=== PATIENT | male | born 1975 | race Caucasian/White ===

== ENCOUNTER 2022-04-09 05:51 | Day surgery (SDC) | payer BC, SELFPAY ==
[2022-04-09] VITALS (23 sets, daily range): BP systolic 133–169; BP diastolic 83–119; PULSE 61–91; RESP 10–18; TEMP 35.7–36.9; O2SAT 94–99; BMI 27.9
--- NOTE | 2022-04-09 06:28 | CRLHL7_ITS ---
For Patients: As a result of the Century Cures Act, medical imaging exams and procedure reports are released immediately into your electronic medical record. You may view this report before your referring provider. If you have questions, please contact your health care provider. INDICATION: Right upper quadrant abdomen pain. TECHNIQUE: Ultrasound abdomen limited. Sonographic images of the right upper quadrant were obtained using mendiola-scale and color Doppler images. COMPARISON: None. FINDINGS: Liver: Normal in size and echotexture. No masses. No intrahepatic biliary dilatation. Gallbladder: Multiple gallbladder stones are present. There is gallbladder wall thickening measuring 10 mm. Common bile duct: 5 mm. Pancreas: Not well visualized secondary to bowel gas. Right kidney: Normal in size. Normal echotexture and cortex. No suspicious masses, stones, or hydronephrosis. Vasculature: Proximal abdominal aorta and IVC are normal. IMPRESSION: Cholelithiasis with gallbladder wall thickening consistent with cholecystitis. Dictated by Dung Carroll MD @ 04/09/2022 7:21:30 AM (Electronically Signed)
--- NOTE | 2022-04-09 06:31 | ED.GENADULT ---
HPI - General Adult General Date Seen: 04/09/22 Chief complaint: Abdominal Pain Stated complaint: abdominal and flank pain Time Seen by Provider: 04/09/22 06:01 Source: patient History of Present Illness HPI narrative: Patient is a 46-year-old male who presents for evaluation of right upper quadrant and which radiates to the right low back. He has had this pain on and off for the past week or so. It has been milder and has not been present all the time. He says he had talked to his doctor who had recommended a bland diet, so he had been eating fairly bland food, but yesterday had eaten at [employer], and thinks that set off his symptoms again. Since 5 or 6:00 p.m. last night his pain is been more severe, and he presents at 6:00 a.m. for evaluation saying he just can not take it anymore. He has nausea, has had some dry heaves but no vomiting. He has had a couple of normal bowel movements in the past day, no bloody stools and no diarrhea. No fevers that he is aware of but he says he has felt hot and cold. No urinary symptoms. Prior to this week he has not had pain like this. He has not had any abdominal surgeries. He does not smoke or drink. Related Data Previous Rx's Medication Instructions Recorded oxycodone 5 mg tablet 5 mg PO Q6H PRN pain #20 tabs 04/09/22 sennosides 8.6 mg capsule (senna) 8.6 mg PO DAILY PRN constipation 04/09/22 #90 caps Allergies Allergy/AdvReac Type Severity Reaction Status Date / Time ibuprofen [From Advil] Allergy Intermediate Verified 04/09/22 06:57 Review of Systems Status of ROS: Reports: 10 or more systems reviewed and unremarkable except as noted in History and below [facility] Medical History Chronic back pain Gastroenteritis Obesity Surgical History History of tonsillectomy and adenoidectomy Social History Smoking Status: Never smoker Do you use any of these nicotine containing products: None Second hand tobacco smoke exposure: No How often do you have a drink containing alcohol: never How often do you have six or more drinks on one occasion: Never AUDIT-C Alcohol total score: 0 Non-prescribed substance use: denies use Exam Narrative: Exam Narrative: Vital signs as noted above. In general, an alert, well-appearing patient. Head: Normocephalic, atraumatic. Eyes: Pupils are equal reactive. Extraocular movements are full. Conjunctivae are normal. ENT: Mucous membranes are moist. Throat is normal. Neck: Supple without lymphadenopathy. Heart: Regular rate and rhythm. No murmur or rub. Lungs: Clear bilaterally. No increased work of breathing, crackles or wheezes. Abdomen: Soft with isolated right upper quadrant tenderness, positive Portillo's. No rebound guarding or rigidity otherwise. Exam somewhat limited by body habitus. Back: No CVA tenderness. Extremities: Well perfused. No edema. No calf tenderness. Pulses intact. Neurologic: Patient is alert and oriented to person and place. Speech is fluent. Face is symmetric. Moves all extremities equally. Affect: Normal. Skin: Warm and dry. Well perfused. Const: Vital Signs, click to edit/add: Vital Signs - 24 hr 04/09/22 13:35 04/09/22 13:40 04/09/22 13:45 Temperature 97 F L Pulse Rate 75 77 75 Pulse Rate [Right Pulse Oximeter] Respiratory Rate 10 L 12 12 Blood Pressure 144/91 H 148/91 H 144/91 H Blood Pressure [Le ft Arm] Pulse Oximetry 95 95 94 Oxygen Delivery Fl thod Room Air Room Air Room Air 04/09/22 13:50 04/09/22 13:55 04/09/22 14:00 Temperature Pulse Rate 70 67 65 Pulse Rate [Right Pulse Oximeter] Respiratory Rate 12 12 12 Blood Pressure 137/91 H 146/94 H 141/87 H Blood Pressure [Le ft Arm] Pulse Oximetry 96 95 96 Oxygen Delivery Fl thod Room Air Room Air Room Air 04/09/22 14:02 04/09/22 14:16 04/09/22 14:16 Temperature 97.1 F L 96.9 F L 96.9 F L Pulse Rate 65 Pulse Rate [Right Pulse Oximeter] Respiratory Rate 12 16 16 Blood Pressure 134/92 H Blood Pressure [Le ft Arm] 150/97 H 150/97 H Pulse Oximetry 95 95 Oxygen Delivery Fl thod Room Air Room Air Room Air 04/09/22 14:30 04/09/22 14:16 04/09/22 14:45 Temperature 96.9 F L 96.9 F L 96.9 F L Pulse Rate Pulse Rate [Right Pulse Oximeter] 75 61 Respiratory Rate 16 16 16 Blood Pressure Blood Pressure [Le ft Arm] 155/93 H 150/97 H 158/102 H Pulse Oximetry 99 99 97 Oxygen Delivery Me thod Room Air Room Air Room Air 04/09/22 15:00 04/09/22 15:15 04/09/22 15:45 Temperature 96.7 F L 97.8 F 97.8 F Pulse Rate Pulse Rate [Right Pulse Oximeter] 68 74 63 Respiratory Rate 16 16 16 Blood Pressure Blood Pressure [Le ft Arm] 149/92 H 146/119 H 169/104 H Pulse Oximetry 97 99 98 Oxygen Delivery Me thod Room Air Room Air Room Air 04/09/22 16:15 04/09/22 16:30 04/09/22 18:10 Temperature 97.8 F 97.8 F 98.4 F Pulse Rate Pulse Rate [Right Pulse Oximeter] 69 67 74 Respiratory Rate 16 16 18 Blood Pressure Blood Pressure [Le ft Arm] 153/92 H 169/96 H 156/87 H Pulse Oximetry 99 97 Oxygen Delivery Me thod Room Air Room Air Room Air 04/09/22 17:30 04/09/22 18:43 04/09/22 19:30 Temperature 98.4 F 98.5 F 97.8 F Pulse Rate Pulse Rate [Right Pulse Oximeter] 74 81 91 Respiratory Rate 18 18 18 Blood Pressure Blood Pressure [Le ft Arm] 156/87 H 141/91 H 158/92 H Pulse Oximetry 97 99 97 Oxygen Delivery Me thod Room Air Room Air Room Air 04/09/22 23:00 04/09/22 23:00 04/10/22 03:00 Temperature 97.8 F 96.9 F L Pulse Rate Pulse Rate [Right Pulse Oximeter] 72 72 65 Respiratory Rate 18 18 16 Blood Pressure Blood Pressure [Le ft Arm] 133/83 154/89 H Pulse Oximetry 99 99 Oxygen Delivery Me thod Room Air Room Air 04/10/22 08:35 Temperature 96.9 F L Pulse Rate Pulse Rate [Right Pulse Oximeter] 64 Respiratory Rate 18 Blood Pressure Blood Pressure [Le ft Arm] 124/78 Pulse Oximetry 99 Oxygen Delivery Me thod Room Air Documenting provider has reviewed patient's vital signs: yes Course Course Hospital Course: Patient is a 38-year-old male who presented to the emergency department with clinical symptoms and findings consistent with acute cholecystitis. Underwent a laparoscopic cholecystectomy, the procedure went well and a 15 English Layo drain was left in the gallbladder fossa. On postop day 1 his pain was well controlled, he was tolerating a regular diet and ambulating independently. Repeat LFTs within normal limits. His drain had minimal output, but will remain in place until his clinic follow-up visit. Reevaluation(s) Reevaluation #1: Hospital course was inadvertently recorded in my ER note. ER course consisted of IV placement, Toradol and Zofran for pain. This did improve his symptoms although he still had mild abdominal pain and continued to have abdominal tenderness. I looked with the bedside ultrasound and noted multiple gallstones as well as what appeared to be a thickened gallbladder wall. Right kidney looked normal without evidence of hydronephrosis. Cholecystitis felt to be most likely but other considerations were pancreatitis, biliary colic, pyelonephritis, kidney stone, peptic ulcer disease, gastritis. Labs were relatively unremarkable. His white blood cell count was normal as was his lactate. LFTs showed an AST of 37 and ALT of 66, bilirubin normal. Alk-phos was likewise normal. CRP minimally elevated. Urinalysis negative for infection. He went on to have a formal ultrasound is read by Radiology showing multiple stones and a thickened wall at 10 mm, consistent with cholecystitis. I reviewed these findings with Dr. Scott, general surgery, who agreed to admit for cholecystectomy. He was hemodynamically stable, without other complaints for the remainder of his time in the emergency department. Remained NPO. Plan is for OR later this morning. Vital Signs Vital signs: Initial Vital Signs Temperature 98.5 F 04/09/22 06:01 Temperature Source Temporal Artery Scan 04/09/22 06:01 Pulse Rate 85 04/09/22 06:01 Respiratory Rate 18 04/09/22 06:01 Blood Pressure 138/90 H 04/09/22 06:01 Blood Pressure Mean 106 04/09/22 06:01 Blood Pressure Position Sitting 04/09/22 06:01 Pulse Oximetry 99 04/09/22 06:01 Oxygen Delivery Method 04/09/22 06:01 Vital Signs Temperature 98.5 F 04/09/22 06:01 Pulse Rate 85 04/09/22 06:01 Respiratory Rate 18 04/09/22 06:01 Blood Pressure 138/90 H 04/09/22 06:01 Pulse Oximetry 99 04/09/22 06:01 Oxygen Delivery Method 04/09/22 06:01 Temperature 96.9 F L 04/10/22 08:35 Pulse Rate 64 04/10/22 08:35 Respiratory Rate 18 04/10/22 08:35 Blood Pressure 124/78 04/10/22 08:35 Pulse Oximetry 99 04/10/22 08:35 Oxygen Delivery Method 04/10/22 08:35 Medical Decision Making Lab Data Labs: Lab Results 04/09/22 04/09/22 04/09/22 Range/Units 06:29 06:38 06:38 WBC 10.07 (4.50-11.00) K/uL RBC 5.10 (4.30-5.90) m/uL Hgb 14.6 (13.5-17.5) gm/dL Hct 42.6 (37.0-53.0) % MCV 84 (80-100) fL MCH 29 (26-34) pg MCHC 34 (32-36) gm/dL RDW Coeff of Pat 11.9 (11.5-15.5) % Plt Count 185 (140-440) K/uL Neut % (Auto) 79.0 H (42.0-72.0) % Lymph % (Auto) 12.2 L (20-44) % [place] % (Auto) 7.1 (0.0-11.0) % Eos % (Auto) 1.2 (0.0-7.0) % Baso % (Auto) 0.3 (0.0-3.0) % Neut # (Auto) 8.00 H (1.7-7.0) K/uL Lymph # (Auto) 1.20 (0.90-2.90) K/uL [place] # (Auto) 0.70 (0.00-0.90) K/UL Eos # (Auto) 0.12 (0.00-0.50) K/uL Baso # (Auto) 0.03 (0.00-0.30) K/uL Abs Immat Gran (auto) 0.02 (0.00-0.30) K/uL Sodium 135 (135-149) mmol/L Potassium 4.1 (3.6-5.1) mmol/L Chloride 102 (96-114) mmol/L Carbon Dioxide 25 (20-32) mmol/L BUN 16 (5-24) mg/dL Creatinine 0.7 (0.5-1.5) mg/dL Estimated Creat Clear 137.45 Estimated GFR 114 ml/min Glucose 196 H (60-115) mg/dL Calcium 9.3 (8.4-10.6) mg/dL Total Bilirubin 1.8 H (0.1-1.5) mg/dL Direct Bilirubin 0.1 (0.0-0.5) mg/dL AST 22 (12-35) U/L ALT 24 (4-50) U/L Alkaline Phosphatase 83 (40-150) U/L C-Reactive Protein 3.3 H (0.5-1.0) mg/dL Total Protein 7.1 (6.0-8.3) g/dL Albumin 4.4 (3.3-5.0) g/dL Lipase 50 (23-300) U/L Urine Color [place] A (Yellow) Urine Appearance Clear (Clear) Urine pH 7.0 (5.0-8.5) Ur Specific [place] 1.020 (1.000-1.030) Urine Protein Trace A (Negative) Urine Glucose (UA) Negative (Negative) Urine Ketones Trace A (Negative) Urine Blood Negative (Negative) Urine Nitrite Negative (Negative) Urine Bilirubin Negative (Negative) Urine Urobilinogen 0.2 (0.2-1.0) Ur Leukocyte Esterase Negative (Negative) Urine RBC 0-2 (0-2) Urine WBC 0-2 (0-5) Ur Squamous Epith Cells Few (None-Few) Amorphous Sediment Few A (None) Other Sediment FEW YEAST (None) Urine Bacteria Few A (None) Urine Mucus Many A (None) SARS-CoV-2 (PCR) (Negative) 04/09/22 04/10/22 Range/Units 07:55 06:08 WBC (4.50-11.00) K/uL RBC (4.30-5.90) m/uL Hgb (13.5-17.5) gm/dL Hct (37.0-53.0) % MCV (80-100) fL MCH (26-34) pg MCHC (32-36) gm/dL RDW Coeff of Pat (11.5-15.5) % Plt Count (140-440) K/uL Neut % (Auto) (42.0-72.0) % Lymph % (Auto) (20-44) % [place] % (Auto) (0.0-11.0) % Eos % (Auto) (0.0-7.0) % Baso % (Auto) (0.0-3.0) % Neut # (Auto) (1.7-7.0) K/uL Lymph # (Auto) (0.90-2.90) K/uL [place] # (Auto) (0.00-0.90) K/UL Eos # (Auto) (0.00-0.50) K/uL Baso # (Auto) (0.00-0.30) K/uL Abs Immat Gran (auto) (0.00-0.30) K/uL Sodium (135-149) mmol/L Potassium (3.6-5.1) mmol/L Chloride (96-114) mmol/L Carbon Dioxide (20-32) mmol/L BUN (5-24) mg/dL Creatinine (0.5-1.5) mg/dL Estimated Creat Clear Estimated GFR ml/min Glucose (60-115) mg/dL Calcium (8.4-10.6) mg/dL Total Bilirubin 1.1 (0.1-1.5) mg/dL Direct Bilirubin 0.2 (0.0-0.5) mg/dL AST 37 H (12-35) U/L ALT 66 H (4-50) U/L Alkaline Phosphatase 68 (40-150) U/L C-Reactive Protein (0.5-1.0) mg/dL Total Protein 6.5 (6.0-8.3) g/dL Albumin 3.9 (3.3-5.0) g/dL Lipase (23-300) U/L Urine Color (Yellow) Urine Appearance (Clear) Urine pH (5.0-8.5) Ur Specific [place] (1.000-1.030) Urine Protein (Negative) Urine Glucose (UA) (Negative) Urine Ketones (Negative) Urine Blood (Negative) Urine Nitrite (Negative) Urine Bilirubin (Negative) Urine Urobilinogen (0.2-1.0) Ur Leukocyte Esterase (Negative) Urine RBC (0-2) Urine WBC (0-5) Ur Squamous Epith Cells (None-Few) Amorphous Sediment (None) Other Sediment (None) Urine Bacteria (None) Urine Mucus (None) SARS-CoV-2 (PCR) Negative SARS-CoV-2 (Negative) Discharge Plan Discharge Activity Level: Activity as Tolerated Activity Detail: Activity as tolerated. Avoid strenuous activity. No lifting greater than 20 lb for 2 weeks. Discharge Diet: Low Fat/Low Cholesterol
[2022-04-09] MEDS: ONDANSETRON 2 MG/ML inj 4 MG IVP (06:35)
[2022-04-09] MEDS: KETOROLAC 15 MG/ML inj IVP ×2 (06:37→15:29)
[2022-04-09 06:54] LABS: Basophils Absolute Auto 0.03 K/uL (0.00-0.30); Basophils Percent Auto 0.3 % (0.0-3.0); Eosinophils Absolute Auto 0.12 K/uL (0.00-0.50); Eosinophils Percent Auto 1.2 % (0.0-7.0); Hematocrit 42.6 % (37.0-53.0); Hemoglobin* 14.6 gm/dL (13.5-17.5); Immature Granulocytes Abs Auto 0.02 K/uL (0.00-0.30); Lymphocytes Percent Auto 12.2 % (20-44); Mean Corpuscular HGB Conc 34 gm/dL (32-36); Mean Corpuscular Hemoglobin 29 pg (26-34); Mean Corpuscular Volume 84 fL (80-100); Monocytes Percent Auto 7.1 % (0.0-11.0); Platelet Count* 185 K/uL (140-440); RDW Coefficient of Variation % 11.9 % (11.5-15.5); White Blood Count* 10.07 K/uL (4.50-11.00)
[2022-04-09 07:04] LABS: Albumin* 4.4 g/dL (3.3-5.0); Chloride* 102 mmol/L (96-114)
[2022-04-09 07:05] LABS: Potassium* 4.1 mmol/L (3.6-5.1); Sodium* 135 mmol/L (135-149)
[2022-04-09 07:07] LABS: Alkaline Phosphatase* 83 U/L (40-150); Aspartate Amino Transferase* 22 U/L (12-35); Bilirubin Direct* 0.1 mg/dL (0.0-0.5); Bilirubin Total* 1.8 mg/dL (0.1-1.5); Carbon Dioxide* 25 mmol/L (20-32); Creatinine* 0.7 mg/dL (0.5-1.5); Est. Creatinine Clearance* 137.45; Estimated Glomerular Filt Rate 114 ml/min; Total Protein* 7.1 g/dL (6.0-8.3)
[2022-04-09 07:08] LABS: Alanine Aminotransferase* 24 U/L (4-50); Blood Urea Nitrogen* 16 mg/dL (5-24); Calcium* 9.3 mg/dL (8.4-10.6); Glucose* 196 mg/dL (60-115); Lipase* 50 U/L (23-300)
[2022-04-09 07:10] LABS: C Reactive Protein* 3.3 mg/dL (0.5-1.0)
[2022-04-09 07:18] LABS: Slide Review Reflex No
--- NOTE | 2022-04-09 07:40 | ED.NURSE ---
matt sanabria aware of admission and pending surgery today. is calling his family. reports that his mother lives in [place] and will be on her way soon.
[2022-04-09 07:41] LABS: Appearance Urine Clear (Clear); Bilirubin Urine Negative (Negative); Blood Urine Negative (Negative); Color Urine Orange (Yellow); Glucose Urine Negative (Negative); Ketones Urine Trace (Negative); Leukocyte Esterase Urine Negative (Negative); Nitrite Urine Negative (Negative); Protein Urine Trace (Negative); Urobilinogen Urine 0.2 (0.2-1.0)
[2022-04-09 07:54] LABS: RBC Urine 0-2 (0-2); Squamous Epithelial Cell Urine Few (None-Few); WBC Urine 0-2 (0-5)
[2022-04-09 07:55] LABS: Amorphous Sediment Urine Few; Bacteria Urine Few; Mucus Urine Many; Other Sediment Urine FEW YEAST
[2022-04-09] MEDS: 0.9 % SODIUM CHLORIDE 1000 ml 1,000 ML 125 ML IV (08:02)
[2022-04-09 08:59] LABS: SARS PCR* Negative SARS-CoV-2 (Negative)
--- NOTE | 2022-04-09 10:26 | PM.GSCN ---
History of Present Illness Consult details Date Seen: 04/09/22 Consult date: 04/09/22 Narrative: Patient is a 46-year-old male who presented to the emergency department for persistent right upper quadrant abdominal pain. He states that he has had this pain on and off for the last week. Initially talk to his primary care doctor, who recommended a bland diet. He was sticking to the bland diet until last night when he ate some orange chicken from [employer]. He thinks that this set off his symptoms again. He reports severe right upper quadrant abdominal pain that persisted throughout the night. He has had nausea and dry heaves, but no vomiting. Denies any diarrhea or constipation. No fevers or chills. Since being in the emergency department his pain has partially subsided but still persists. He does admit to eating a high fat diet and lots of fast food. He does not smoke or drink. Review of Systems Status of ROS: Reports: 10 or more systems reviewed and unremarkable except as noted in History and below [facility] Medical History Chronic back pain Gastroenteritis Obesity Surgical History History of tonsillectomy and adenoidectomy Social History Smoking Status: Never smoker Do you use any of these nicotine containing products: None Second hand tobacco smoke exposure: No How often do you have a drink containing alcohol: never How often do you have six or more drinks on one occasion: Never AUDIT-C Alcohol total score: 0 Non-prescribed substance use: denies use Meds Home Medications and Allergies Home Medications Medication Instructions Recorded Confirmed Type No Known Home Medications 04/09/22 04/09/22 History Allergies Allergy/AdvReac Type Severity Reaction Status Date / Time ibuprofen [From Advil] Allergy Intermediate Verified 04/09/22 06:57 Exam Narrative: Exam Narrative: General: Alert and oriented, no acute distress Respiratory: Equal breath rise bilaterally, maintained on room air CV: Regular rhythm rate, well perfused Abdomen: Soft, tender to palpation right upper quadrant with some mild guarding, no rebound. Nondistended. Const: Vital Signs, click to edit/add: Vital Signs - 24 hr 04/09/22 06:01 04/09/22 06:37 04/09/22 07:32 Temperature 98.5 F 98.5 F 96.2 F L Pulse Rate [Right Pulse Oximeter] 85 64 Respiratory Rate 18 Blood Pressure [Ri ght Upper Arm] 138/90 H 138/95 H Pulse Oximetry 99 97 Oxygen Delivery Me thod Room Air Room Air Results Labs Labs: Abnormal lab results 04/09/22 04/09/22 04/09/22 Range/Units 06:29 06:38 06:38 Neut % (Auto) 79.0 H (42.0-72.0) % Lymph % (Auto) 12.2 L (20-44) % Neut # (Auto) 8.00 H (1.7-7.0) K/uL Glucose 196 H (60-115) mg/dL Total Bilirubin 1.8 H (0.1-1.5) mg/dL C-Reactive Protein 3.3 H (0.5-1.0) mg/dL Urine Color [place] A (Yellow) Urine Protein Trace A (Negative) Urine Ketones Trace A (Negative) Amorphous Sediment Few A (None) Urine Bacteria Few A (None) Urine Mucus Many A (None) Diabetes panel 04/09/22 Range/Units 06:38 Sodium 135 (135-149) mmol/L Potassium 4.1 (3.6-5.1) mmol/L Chloride 102 (96-114) mmol/L Carbon Dioxide 25 (20-32) mmol/L BUN 16 (5-24) mg/dL Creatinine 0.7 (0.5-1.5) mg/dL Glucose 196 H (60-115) mg/dL Calcium 9.3 (8.4-10.6) mg/dL AST 22 (12-35) U/L ALT 24 (4-50) U/L Alkaline Phosphatase 83 (40-150) U/L Total Protein 7.1 (6.0-8.3) g/dL Albumin 4.4 (3.3-5.0) g/dL Calcium panel 04/09/22 Range/Units 06:38 Calcium 9.3 (8.4-10.6) mg/dL Albumin 4.4 (3.3-5.0) g/dL Pituitary panel 04/09/22 Range/Units 06:38 Sodium 135 (135-149) mmol/L Potassium 4.1 (3.6-5.1) mmol/L Chloride 102 (96-114) mmol/L Carbon Dioxide 25 (20-32) mmol/L BUN 16 (5-24) mg/dL Creatinine 0.7 (0.5-1.5) mg/dL Glucose 196 H (60-115) mg/dL Calcium 9.3 (8.4-10.6) mg/dL Adrenal panel 04/09/22 Range/Units 06:38 Sodium 135 (135-149) mmol/L Potassium 4.1 (3.6-5.1) mmol/L Chloride 102 (96-114) mmol/L Carbon Dioxide 25 (20-32) mmol/L BUN 16 (5-24) mg/dL Creatinine 0.7 (0.5-1.5) mg/dL Glucose 196 H (60-115) mg/dL Calcium 9.3 (8.4-10.6) mg/dL Total Bilirubin 1.8 H (0.1-1.5) mg/dL AST 22 (12-35) U/L ALT 24 (4-50) U/L Alkaline Phosphatase 83 (40-150) U/L Total Protein 7.1 (6.0-8.3) g/dL Albumin 4.4 (3.3-5.0) g/dL All other labs normal. Imaging Abdominal ultrasound report/results: report reviewed and image reviewed Assessment and Plan Assessment and plan (1) Acute cholecystitis: Status: Acute Plan Patient is a 46-year-old male with clinical symptoms and workup consistent with acute cholecystitis. LFTs are within normal limits and ultrasound does not demonstrate any dilation of the common bile duct making choledocholithiasis unlikely. I had a detailed conversation with the patient regarding the diagnosis of acute cholecystitis. We discussed the treatment options including observation with diet modification and laparoscopic cholecystectomy. We discussed the risks of surgery (including but not limited to) the risks of bleeding, infection, injury to other structures in the abdomen including bile duct injury, bile leak and conversion to an open operation. We discussed the possibility that the patient's pain not improve with surgery. We discussed the possibility of permanent post-operative diarrhea that may require medical management. Additionally, the conceivably of complications requiring additional surgery or further hospitalization were also discussed including the risks of ME, respiratory failure, stroke and blood clots. The patient voiced an understanding of our conversation, had the opportunity to ask questions, agreed to accept the risks of surgery and asked that we proceed with surgery. -OR for laparoscopic cholecystectomy -preop antibiotics -will plan for recovery in med/surgery
[2022-04-09] MEDS: PIPERACILLIN/TAZOBACTAM 3.375 GM in 0.9 % SODIUM CHLORIDE Mini-bag 100 ML IVPB (10:43)
[2022-04-09] MEDS: BUPIVACAINE 0.5% 30 ML INJECTION (13:10)
--- NOTE | 2022-04-09 13:38 | W.ANESCHARGE ---
Anesthesia Charges Start Date/Time Anesthesia Start Date: 04/09/22 Anesthesia Start Time: 10:33 Stop Date/Time Anesthesia Stop Date: 04/09/22 Anesthesia Stop Time: 13:35 Summary Emergency: Yes
--- NOTE | 2022-04-09 13:44 | PM.GSPRC ---
Operative Note Date of procedure: 04/09/22 Type of Procedure: Laparoscopic cholecystectomy Procedure Description: After discussing the risks and benefits of the procedure, the patient signed informed consent.? The operative site was marked and the patient was brought to the operating room and placed on the operating table in supine position.? Care was taken to pad the patient's pressure points.?? The patient was then intubated by anesthesia.?? The operative site was then prepped and draped in the usual sterile fashion.? A time-out was then performed. Entrance to the abdomen was gained via a 5 mm Visiport in the left upper quadrant. The abdomen was insufflated and briefly surveyed for signs of injury. There was none. 11 mm umbilical port was placed as well as 2 working ports along the right costal margin. Patient was then placed in reverse Trendelenburg position with the right side up. The gallbladder fundus was distended and difficult to grasp. A laparoscopic needle was used to drain 70 mL of bile from the gallbladder. Even with drainage the gallbladder was very edematous and full of multiple stones. Although difficult I was able to grasp and retract the gallbladder cephalad. A small amount of dissection was needed to free omental adhesions from the gallbladder. The infundibulum was grasped. A combination of hook cautery and blunt dissection was used to carefully dissect out the cystic duct and artery. The cystic artery was found coursing on the body of the gallbladder and able to circumferentially be dissected out. Two clips were placed proximally and 1 clip distally and the artery transected. An additional small clip was placed on a branching artery. Hemostasis was excellent. The cystic duct was visualized and carefully dissected circumferentially. It was dilated and full of stones. Two 5 mm clips were placed proximally and 1 distal. The 2 proximal clips did not completely cross the cystic duct due to its dilation. The cystic duct was transected and an 0 Vicryl endoloop brought onto the field to ligate the cystic duct. The 0 Vicryl endoloop was able to go around the entirety of the cystic duct. During this manipulation the 2 clips that were previously placed on the cystic duct fell off. The area was carefully examined and again the ligation with the 0 Vicryl endoloop appeared to complete. The gallbladder was then dissected off of the liver bed. This was made difficult secondary to the edematous gallbladder wall. The gallbladder was removed from the abdomen using an Endo-Catch bag. The gallbladder bed was surveyed for hemostasis. A 15 [place] Layo drain was placed within the gallbladder fossa and secured to the skin with a 2 0 nylon suture. A small amount of bile and stones which had spilled was suctioned from the abdomen the ports were then removed under direct vision. The umbilical port fascia was closed with interrupted 0 Vicryl stitches. The skin was closed with absorbable subcuticular suture. Instrument sponge and needle counts were correct at the end of the case. The patient was then woken and transferred to the PACU in stable condition. ? Findings: Findings consistent with acute cholecystitis. Fifteen [place] Layo drain left within the gallbladder fossa. Anesthesia: GETA Surgeon: Caty Scott MD Estimated blood loss (mL): 25 Condition: stable Disposition: PACU
[2022-04-09] MEDS: LACTATED RINGERS 1000 ML 1,000 ML 125 ML IV ×2 (15:02→23:13)
[2022-04-09] MEDS: OXYCODONE 5 MG TABLET PO ×2 (15:28→23:16)
--- NOTE | 2022-04-09 18:21 | PC.NURSE ---
shift note: pt to floor from pacu @ 0688 via bed to rm 259. pt vss per recovery post op. pt medicated for abd pain 12/25 with oxycodone & toradol with relief. pt has active BS and is belching. pt tolerating clears. pt has lap site x2 that are open to air with no drainage. pt has drsg to [facility] with intact PAMELLA. 10cc emptied from PAMELLA @ 6524. IV patent. Pt using IS to 500.
[2022-04-10 03:00] VITALS: BP 154/89; PULSE 65; RESP 16; TEMP 36.1; O2SAT 99
[2022-04-10 06:52] LABS: Albumin* 3.9 g/dL (3.3-5.0)
[2022-04-10 06:55] LABS: Alanine Aminotransferase* 66 U/L (4-50); Alkaline Phosphatase* 68 U/L (40-150); Aspartate Amino Transferase* 37 U/L (12-35); Bilirubin Direct* 0.2 mg/dL (0.0-0.5); Bilirubin Total* 1.1 mg/dL (0.1-1.5); Total Protein* 6.5 g/dL (6.0-8.3)
--- NOTE | 2022-04-10 07:13 | PC.NURSE ---
END OF SHIFT NOTE: PT IS PLEASANT AND COOPERATIVE. AMBULATES INDEPENDENTLY WITHIN ROOM. PT SPLINTS ABDOMEN WITH HANDS WHEN STANDING UP. PT RATES ABDOMINAL PAIN 2-3/10 WITH RELIEF FROM PRN OXYCODONE GIVEN AT HS. PT SLEPT IN CHAIR COMFORTABLY. PT DENIES SOB, CP, N/V. PT HAD TOAST AND TOLERATED IT WELL. VSS ON RA AND IS AFEBRILE. LAP SITES x2 FABIANA, PAMELLA DRAINAGE DRESSING IS CDI. PAMELLA DRAINED 18MLS
[2022-04-10 08:35] VITALS: BP 124/78; PULSE 64; RESP 18; TEMP 36.1; O2SAT 99
--- NOTE | 2022-04-10 10:41 | P.DS_ITS ---
DS: Providers Provider Date Seen: 04/10/22 Primary care physician: Aris Reilly MD Attending Physician on discharge: Caty Scott MD DS: Summary Hospital Course Hospital Course: Patient is a 38-year-old male who presented to the emergency department with clinical symptoms and findings consistent with acute cholecystitis. Underwent a laparoscopic cholecystectomy, the procedure went well and a 15 [place] Layo drain was left in the gallbladder fossa. On postop day 1 his pain was well controlled, he was tolerating a regular diet and ambulating independently. Repeat LFTs within normal limits. His drain had minimal output, but will remain in place until his clinic follow-up visit. Status at Discharge Functional status at discharge: independent ambulation Overall status at discharge: patient is progressing back to baseline Time Spent with Patient Time attestation: Total time spent providing and/or coordinating discharge services: Exam Narrative: Exam Narrative: General: Alert and oriented, no acute distress. Nontoxic in appearance. Respiratory: Equal breath rise bilaterally, maintained on room air CV: Regular rhythm rate, well perfused Abdomen: Soft, appropriately tender over incision sites. Some mild ecchymoses surrounding umbilical incision. Right upper quadrant drain in place with minimal serosanguineous output. Const: Vital Signs, click to edit/add: Vital Signs - 24 hr 04/09/22 13:35 04/09/22 13:40 04/09/22 13:45 Temperature 97 F L Pulse Rate 75 77 75 Pulse Rate [Right Pulse Oximeter] Respiratory Rate 10 L 12 12 Blood Pressure 144/91 H 148/91 H 144/91 H Blood Pressure [Le ft Arm] Pulse Oximetry 95 95 94 Oxygen Delivery Me thod Room Air Room Air Room Air 04/09/22 13:50 04/09/22 13:55 04/09/22 14:00 Temperature Pulse Rate 70 67 65 Pulse Rate [Right Pulse Oximeter] Respiratory Rate 12 12 12 Blood Pressure 137/91 H 146/94 H 141/87 H Blood Pressure [Le ft Arm] Pulse Oximetry 96 95 96 Oxygen Delivery Me thod Room Air Room Air Room Air 04/09/22 14:02 04/09/22 14:16 04/09/22 14:16 Temperature 97.1 F L 96.9 F L 96.9 F L Pulse Rate 65 Pulse Rate [Right Pulse Oximeter] Respiratory Rate 12 16 16 Blood Pressure 134/92 H Blood Pressure [Le ft Arm] 150/97 H 150/97 H Pulse Oximetry 95 95 Oxygen Delivery Me thod Room Air Room Air Room Air 04/09/22 14:30 04/09/22 14:16 04/09/22 14:45 Temperature 96.9 F L 96.9 F L 96.9 F L Pulse Rate Pulse Rate [Right Pulse Oximeter] 75 61 Respiratory Rate 16 16 16 Blood Pressure Blood Pressure [Le ft Arm] 155/93 H 150/97 H 158/102 H Pulse Oximetry 99 99 97 Oxygen Delivery Me thod Room Air Room Air Room Air 04/09/22 15:00 04/09/22 15:15 04/09/22 15:45 Temperature 96.7 F L 97.8 F 97.8 F Pulse Rate Pulse Rate [Right Pulse Oximeter] 68 74 63 Respiratory Rate 16 16 16 Blood Pressure Blood Pressure [Le ft Arm] 149/92 H 146/119 H 169/104 H Pulse Oximetry 97 99 98 Oxygen Delivery Me od Room Air Room Air Room Air 04/09/22 16:15 04/09/22 16:30 04/09/22 18:10 Temperature 97.8 F 97.8 F 98.4 F Pulse Rate Pulse Rate [Right Pulse Oximeter] 69 67 74 Respiratory Rate 16 16 18 Blood Pressure Blood Pressure [Le ft Arm] 153/92 H 169/96 H 156/87 H Pulse Oximetry 99 97 Oxygen Delivery Me thod Room Air Room Air Room Air 04/09/22 17:30 04/09/22 18:43 04/09/22 19:30 Temperature 98.4 F 98.5 F 97.8 F Pulse Rate Pulse Rate [Right Pulse Oximeter] 74 81 91 Respiratory Rate 18 18 18 Blood Pressure Blood Pressure [Le ft Arm] 156/87 H 141/91 H 158/92 H Pulse Oximetry 97 99 97 Oxygen Delivery Me thod Room Air Room Air Room Air 04/09/22 23:00 04/09/22 23:00 04/10/22 03:00 Temperature 97.8 F 96.9 F L Pulse Rate Pulse Rate [Right Pulse Oximeter] 72 72 65 Respiratory Rate 18 18 16 Blood Pressure Blood Pressure [Le ft Arm] 133/83 154/89 H Pulse Oximetry 99 99 Oxygen Delivery Me thod Room Air Room Air 04/10/22 08:35 Temperature 96.9 F L Pulse Rate Pulse Rate [Right Pulse Oximeter] 64 Respiratory Rate 18 Blood Pressure Blood Pressure [Le ft Arm] 124/78 Pulse Oximetry 99 Oxygen Delivery Me thod Room Air DS: Data Data Completed and Pending Labs on day of discharge: Labs from last 24 hours 04/10/22 06:08 Total Bilirubin 1.1 Direct Bilirubin 0.2 AST 37 H ALT 66 H Alkaline Phosphatase 68 Total Protein 6.5 Albumin 3.9 Preliminary micro results at discharge 04/09/22 06:29 Urine Culture - Preliminary Urine,Clean Catch NO GROWTH AFTER 24 HOURS Discharge Plan Discharge Disposition: Home, Self-Care Discharging Surgeon: Caty Scott Follow-Up Appointment: One week follow-up in clinic, schedule for 04/14/22 Prescriptions: New oxycodone 5 mg tablet 5 mg PO Q6H PRN (Reason: pain) Qty: 20 0RF senna 8.6 mg capsule 8.6 mg PO DAILY PRN (Reason: constipation) Qty: 90 0RF Activity Level: Activity as Tolerated Activity Detail: Activity as tolerated. Avoid strenuous activity. No lifting greater than 20 lb for 2 weeks. Discharge Diet: Low Fat/Low Cholesterol Patient Instructions: Laxative, Stimulant (By mouth), Oxycodone, Rapid Release (By mouth), Surgical Site Infections (DC), Laparoscopic Cholecystectomy (DC), Post-Operative Instructions: Laparoscopic Cholecystectomy Additional Instructions: Okay to shower starting tomorrow. No soaking in a bath or bathing for 2 weeks. Forms: Work/Release Restrictions Follow-up: Aris Reilly MD [Primary Care Provider] - Discharge Orders: Discharge Order (Routine); Ordered 04/10/22 Ordered By: Caty Scott
[2022-04-10] MEDS: OXYCODONE 5 MG TABLET PO (11:39)
[2022-04-10] MEDS: ACETAMINOPHEN 325 MG TABLET 650 MG PO (11:39)
[2022-04-10 12:22] VITALS: BP 124/78; PULSE 64; RESP 18; TEMP 36.1
--- NOTE | 2022-04-10 12:25 | PC.NURSE ---
shift note: vss stable. pt afeb. small amount of shadowing on drsg for drain site. pt taught how to strip and empty drain. Pt performed task. Pt's mother present during demonstration. supplies sent with pt for drain. Belongings reviewed and sent with pt at dc. IV to Rt hand dc'd intact. Reviewed dc instructions and copies sent with pt at dc. Pt medicated prior to dc for 3/10 pain in abd
== END 2022-04-10 12:27 | disposition home or self-care (01) ==
LOC: ED 09:41 → SS 10:24 → MEDSURG 14:12
PROVIDERS: Emergency Provider Emergency Medicine; PCP Family Medicine; Visit Provider Surgery
PROC: 0FT44ZZ Resection of Gallbladder, Percutaneous Endoscopic Approach (ICD-10-PCS; CPT 47562; principal; 2022-04-09 11:00)
DX: K80.12 Calculus of gallbladder with acute and chronic cholecystitis without obstruction (principal)
CPT/HCPCS: 47562; 36415; 76705; 80048; 80076; 81001; 83690; 840; 85025; 86140; 87086; 87635; 88304; 99140; 99284; 99285; A9270; J0330; J1100; J1885; J2250; J2370; J2405; J2543; J2704; J3010; J3490; J7030; J7120

== ENCOUNTER 2022-04-21 14:26 | Emergency (ER) | payer BC, SELFPAY ==
[2022-04-21] VITALS (17 sets, daily range): BP systolic 77–160; BP diastolic 43–90; PULSE 66–82; RESP 14–22; TEMP 36.4; O2SAT 93–99; BMI 41.8
--- NOTE | 2022-04-21 16:14 | CRLHL7_ITS ---
For Patients: As a result of the Century Cures Act, medical imaging exams and procedure reports are released immediately into your electronic medical record. You may view this report before your referring provider. If you have questions, please contact your health care provider. INDICATION: Postop katherine 04/09/2022. Abdominal pain. TECHNIQUE: CT abdomen and pelvis acquired with 147 mL Isovue 370 IV contrast. Coronal and sagittal reformats were generated. COMPARISON: None. FINDINGS: Evaluation of the upper abdomen is limited by patient motion. : Lower chest: Linear bibasilar opacities are suggestive of scarring. Liver: Unremarkable. Gallbladder and bile ducts: Surgically absent gallbladder. Small amount of stranding in the gallbladder fossa is likely postoperative. No fluid collections. The common bile duct is normal in caliber. Mild intrahepatic biliary dilation could be the result of reservoir effect. Spleen: Unremarkable. Pancreas: Unremarkable. Adrenal glands: Unremarkable. No nodules. Kidneys and Ureters: Unremarkable. No suspicious masses, stones, or hydronephrosis. Lymph Nodes and Retroperitoneum: Unremarkable. Vasculature: Unremarkable. GI tract: Unremarkable. Normal in caliber. Normal appendix. Peritoneum/Abdominal Wall: Unremarkable. No mass or infiltration. No free air or free fluid. Fat containing inguinal hernias. Areas of subcutaneous stranding in the expected location of the laparoscopic ports. Pelvic Viscera: Unremarkable. Bladder: Unremarkable. Bones: Unremarkable for age. IMPRESSION: 1. Surgically absent gallbladder. No findings to suggest complication. 2. No other significant CT abnormality in the abdomen or pelvis, or findings to explain the cause of the patient`s symptoms. Please note that all CT scans at this facility use dose modulation, iterative reconstruction, and/or weight-based dosing when appropriate to reduce radiation dose to as low as reasonably achievable. Dictated by Rehan Brooke MD @ 04/21/2022 6:16:16 PM (Electronically Signed)
--- NOTE | 2022-04-21 16:16 | ED.GENADULT ---
HPI - General Adult General Time Seen by Provider: 16:16 <Austin Baxter MD - Last Filed: 04/22/22 21:27> Date Seen: 04/21/22 <Austin Baxter MD - Last Filed: 04/22/22 21:27> Chief complaint: Post Op Complication <Austin Baxter MD - Last Filed: 04/22/22 21:27> Stated complaint: Nausea,vomiting, pain in low R back and stomach <Austin Baxter MD - Last Filed: 04/22/22 21:27> Time Seen by Provider: 04/21/22 16:05 <Austin Baxter MD - Last Filed: 04/22/22 21:27> Source: patient <Austin Baxter MD - Last Filed: 04/22/22:27> Mode of arrival: ambulatory <Austin Baxter MD - Last Filed: 04/22/22 21:27> Limitations: no limitations <Austin Baxter MD - Last Filed: 04/22/22 21:27> History of Present Illness HPI narrative: Patient is a 47 year white male had his gallbladder removed with : On the 09 of April. He was doing well until this Tuesday when he developed some pain into his right side of his back and a little bit in his anterior abdomen. He describes it as a ?hunger pain?. He reports he has some right low back pain fairly constantly. He has had good urine output eyes urines [place] darker than normal but he feels he has not gotten of fluids either. He has had good bill bowel movements, he has had no nausea but has had some belching. He has been able to eat. He denies chest pain or shortness of breath, no COVID symptoms. <Austin Baxter MD - Last Filed: 04/22/22 21:27> Related Data Home medications: Previous Rx's Medication Instructions Recorded oxycodone 5 mg tablet 5 mg PO Q6H PRN pain #20 tabs 04/09/22 sennosides 8.6 mg capsule (senna) 8.6 mg PO DAILY PRN constipation 04/09/22 #90 caps <Austin Baxter MD - Last Filed: 04/22/22 21:27> Allergies/adverse reactions: Allergies Allergy/AdvReac Type Severity Reaction Status Date / Time ibuprofen [From Advil] Allergy Intermediate Verified 04/14/22 13:03 piperacillin [From Zosyn] Allergy Hives Verified 04/21/22 20:54 tazobactam [From Zosyn] Allergy Hives Verified 04/21/22 20:54 <Austin Baxter MD - Last Filed: 04/22/22 21:27> Review of Systems Status of ROS: Reports: 10 or more systems reviewed and unremarkable except as noted in History and below <Austin Baxter MD - Last Filed: 04/22/22 21:27> [facility] Medical History: Medical History Chronic back pain Gastroenteritis Obesity <Austin Baxter MD - Last Filed: 04/22/22 21:27> Surgical History: Surgical History History of tonsillectomy and adenoidectomy <Austin Baxter MD - Last Filed: 04/22/22 21:27> Social History: Social History Smoking Status: Never smoker Do you use any of these nicotine containing products: None Second hand tobacco smoke exposure: No How often do you have a drink containing alcohol: never How often do you have six or more drinks on one occasion: Never AUDIT-C Alcohol total score: 0 Non-prescribed substance use: denies use <Austin Baxter MD - Last Filed: 04/22/22 21:27> Exam Narrative: Exam Narrative: Objective in general patient is no apparent distress vital signs are unremarkable HEENT is unremarkable neck is supple pulse regular abdomen obese benign nontender no masses surgical wounds appear to be healing well extremities are no edema neurologic nonfocal good peripheral perfusion noted skin is warm and dry <Austin Baxter MD - Last Filed: 04/22/22 21:27> Const: Vital Signs, click to edit/add: Vital Signs - 24 hr 04/21/22 21:30 04/21/22 22:00 04/21/22 22:30 Pulse Rate [Pulse Oximeter] 75 67 69 Respiratory Rate 16 16 16 Blood Pressure [Le ft Upper Arm] 105/66 111/64 116/75 Pulse Oximetry 99 98 98 Oxygen Delivery Me thod Room Air Room Air Room Air 04/21/22 23:00 04/21/22 23:30 04/22/22 00:00 Pulse Rate [Pulse Oximeter] 71 70 68 Respiratory Rate 16 16 16 Blood Pressure [Le ft Upper Arm] 117/72 123/78 117/73 Pulse Oximetry 95 93 94 Oxygen Delivery Me thod Room Air Room Air Room Air 04/22/22 01:00 04/22/22 02:00 04/22/22 03:00 Pulse Rate [Pulse Oximeter] 73 68 70 Respiratory Rate 16 16 16 Blood Pressure [Le ft Upper Arm] 146/100 H 124/74 124/77 Pulse Oximetry 94 94 95 Oxygen Delivery Me thod Room Air Room Air Room Air 04/22/22 04:00 04/22/22 05:00 04/22/22 06:00 Pulse Rate [Pulse Oximeter] 68 68 62 Respiratory Rate 16 16 16 Blood Pressure [Le ft Upper Arm] 118/78 137/80 132/81 Pulse Oximetry 96 94 96 Oxygen Delivery Me thod Room Air Room Air Room Air 04/22/22 07:00 Pulse Rate [Pulse Oximeter] 65 Respiratory Rate 16 Blood Pressure [Le ft Upper Arm] 132/77 Pulse Oximetry 95 Oxygen Delivery Me thod Room Air <Austin Baxter MD - Last Filed: 04/22/22 21:27> Vital Signs, click to edit/add: Vital Signs - 24 hr 04/21/22 21:30 04/21/22 22:00 04/21/22 22:30 Pulse Rate [Pulse Oximeter] 75 67 69 Respiratory Rate 16 16 16 Blood Pressure [Le ft Upper Arm] 105/66 111/64 116/75 Pulse Oximetry 99 98 98 Oxygen Delivery Me thod Room Air Room Air Room Air 04/21/22 23:00 04/21/22 23:30 04/22/22 00:00 Pulse Rate [Pulse Oximeter] 71 70 68 Respiratory Rate 16 16 16 Blood Pressure [Le ft Upper Arm] 117/72 123/78 117/73 Pulse Oximetry 95 93 94 Oxygen Delivery Me thod Room Air Room Air Room Air 04/22/22 01:00 04/22/22 02:00 04/22/22 03:00 Pulse Rate [Pulse Oximeter] 73 68 70 Respiratory Rate 16 16 16 Blood Pressure [Le ft Upper Arm] 146/100 H 124/74 124/77 Pulse Oximetry 94 94 95 Oxygen Delivery Me thod Room Air Room Air Room Air 04/22/22 04:00 04/22/22 05:00 04/22/22 06:00 Pulse Rate [Pulse Oximeter] 68 68 62 Respiratory Rate 16 16 16 Blood Pressure [Le ft Upper Arm] 118/78 137/80 132/81 Pulse Oximetry 96 94 96 Oxygen Delivery Me thod Room Air Room Air Room Air 04/22/22 07:00 Pulse Rate [Pulse Oximeter] 65 Respiratory Rate 16 Blood Pressure [Le ft Upper Arm] 132/77 Pulse Oximetry 95 Oxygen Delivery Me thod Room Air <Tammy Auguste MD - Last Filed: 04/22/22 11:18> Course Reevaluation(s) Reevaluation #1: Patient's labs are reviewed this morning, improved transaminases and bilirubin. He states the pain is completely gone. I did speak with regarding this patient and questioned if we could do an MRCP to confirm that the stone had passed. She recommended calling GI at [facility] and discuss options. She thought he perhaps could even have an outpatient ERCP done. We will attempt to contact GI and discuss this case further. <Tammy Auguste MD - Last Filed: 04/22/22 11:18> Time: 08:06 <Tammy Auguste MD - Last Filed: 04/22/22 11:18> Consultations Consultation #1: Initially spoke with Dr. Alfaro from [facility] in GI. He unfortunately is on-call for GI bleeds and stated I need to talk to Dr. Bryson who would be on-call for pancreas and biliary. We did page him. I spoke with him at 9:22 a.m. this morning. He stated that MRI is not sensitive for small stones. He recommended that this patient have an endoscopic ultrasound and if need be then proceed to an ERCP if there is a stone. He was going to see if he could get him on the schedule for later today. At 11:[address] Bryson did call back. He really cannot add him on the schedule today due to emergencies and hospital add-ons but he is going to put him on for tomorrow. Patient still remains asymptomatic and thus we will discharge to home. He understands if he worsens again that Dr. Bryson recommends that he proceed to the [facility] ER. <Tammy Auguste MD - Last Filed: 04/22/22 11:18> Time: 08:28 <Tammy Auguste MD - Last Filed: 04/22/22 11:18> Vital Signs Vital signs: Initial Vital Signs Temperature 97.5 F L 04/21/22 15:33 Temperature Source Temporal Artery Scan 04/21/22 15:33 Pulse Rate 75 04/21/22 15:33 Pulse Rhythm 04/21/22 15:33 Respiratory Rate 22 04/21/22 15:33 Blood Pressure 144/88 H 04/21/22 15:33 Blood Pressure Mean 106 04/21/22 15:33 Blood Pressure Position Sitting 04/21/22 15:33 Pulse Oximetry 98 04/21/22 15:33 Oxygen Delivery Method 04/21/22 15:33 Vital Signs Temperature 97.5 F L 04/21/22 15:33 Pulse Rate 75 04/21/22 15:33 Respiratory Rate 22 04/21/22 15:33 Blood Pressure 144/88 H 04/21/22 15:33 Pulse Oximetry 98 04/21/22 15:33 Oxygen Delivery Method 04/21/22 15:33 Temperature 97.5 F L 04/21/22 15:33 Pulse Rate 65 04/22/22 07:00 Respiratory Rate 16 04/22/22 07:00 Blood Pressure 132/77 04/22/22 07:00 Pulse Oximetry 95 04/22/22 07:00 Oxygen Delivery Method 04/22/22 07:00 <Austin Baxter MD - Last Filed: 04/22/22 21:27> Initial Vital Signs Temperature 97.5 F L 04/21/22 15:33 Temperature Source Temporal Artery Scan 04/21/22 15:33 Pulse Rate 75 04/21/22 15:33 Pulse Rhythm 04/21/22 15:33 Respiratory Rate 22 04/21/22 15:33 Blood Pressure 144/88 H 04/21/22 15:33 Blood Pressure Mean 106 04/21/22 15:33 Blood Pressure Position Sitting 04/21/22 15:33 Pulse Oximetry 98 04/21/22 15:33 Oxygen Delivery Method 04/21/22 15:33 Vital Signs Temperature 97.5 F L 04/21/22 15:33 Pulse Rate 75 04/21/22 15:33 Respiratory Rate 22 04/21/22 15:33 Blood Pressure 144/88 H 04/21/22 15:33 Pulse Oximetry 98 04/21/22 15:33 Oxygen Delivery Method 04/21/22 15:33 Temperature 97.5 F L 04/21/22 15:33 Pulse Rate 65 04/22/22 07:00 Respiratory Rate 16 04/22/22 07:00 Blood Pressure 132/77 04/22/22 07:00 Pulse Oximetry 95 04/22/22 07:00 Oxygen Delivery Method 04/22/22 07:00 <Tammy Auguste MD - Last Filed: 04/22/22 11:18> Medical Decision Making MDM Narrative Medical decision making narrative: Patient is a couple weeks status post cholecystectomy laparoscopic, with now some anterior epigastric discomfort some right low back pain. At this point I think a CT scan with IV contrast of the abdomen pelvis to make sure there is no intra-abdominal pathology postoperatively be appropriate, will check labs, IV fluid, IV pain control with medication in 4 in the form of morphine. Disposition pending findings above. Possible surgical consultation Addendum: Dr. Red kindly reviewed his CT scan and lab studies and felt as well that he needs an ERCP for common duct stone retention. At this point he does not appear to have infection, but this should probably be done fairly soon, will attempt to make transfer arrangements for him. Unfortunately all [place] hospitals have been extremely full and unable to take patient's, but we will try and make arrangements for him. [facility] has declined because of volume at this point. Addendum: The [facility] has no hospitals available to take this patient, we have called [facility], [facility], male, [facility], [place], [place] etc. discussed with : Again and she felt that a dose of antibiotic would be appropriate for prevention of cholangitis. Will also keep the patient given the hospital is full now in the ER with IV fluid going morphine as needed for pain and IV fluid as and keep NPO after midnight. Will need to attempt again tomorrow to make transfer for ERCP with elevated liver function tests. Again my wish presently is to have the patient transferred promptly for your CP, but that is not possible at this time. The patient as mention has no options to be transferred in [place], will keep him here tonight give him a dose of antibiotic and perhaps consider another dose tomorrow morning. Will repeat his labs tomorrow morning, transfer sheets have been completed I discussed the case with Dr. Sherman lyons who can direct transfer to another facility tomorrow hopefully for ERCP. <Austin Baxter MD - Last Filed: 04/22/22 21:27> Lab Data Labs: Lab Results 04/21/22 04/21/22 04/21/22 Range/Units 16:48 16:48 21:45 WBC 9.71 (4.50-11.00) K/uL RBC 5.87 (4.30-5.90) m/uL Hgb 16.8 (13.5-17.5) gm/dL Hct 50.2 (37.0-53.0) % MCV 86 (80-100) fL MCH 29 (26-34) pg MCHC 34 (32-36) gm/dL RDW Coeff of Pat 12.5 (11.5-15.5) % Plt Count 244 (140-440) K/uL Neut % (Auto) 85.4 H (42.0-72.0) % Lymph % (Auto) 9.1 L (20-44) % Davison % (Auto) 4.5 (0.0-11.0) % Eos % (Auto) 0.6 (0.0-7.0) % Baso % (Auto) 0.2 (0.0-3.0) % Neut # (Auto) 8.30 H (1.7-7.0) K/uL Lymph # (Auto) 0.90 (0.90-2.90) K/uL Davison # (Auto) 0.40 (0.00-0.90) K/UL Eos # (Auto) 0.06 (0.00-0.50) K/uL Baso # (Auto) 0.02 (0.00-0.30) K/uL Abs Immat Gran (auto) 0.02 (0.00-0.30) K/uL Sodium (135-149) mmol/L Potassium (3.6-5.1) mmol/L Chloride (96-114) mmol/L Carbon Dioxide (20-32) mmol/L BUN (5-24) mg/dL Creatinine (0.5-1.5) mg/dL Estimated Creat Clear Estimated GFR ml/min Glucose (60-115) mg/dL Calcium (8.4-10.6) mg/dL Total Bilirubin 6.1 H (0.1-1.5) mg/dL Direct Bilirubin 3.9 H (0.0-0.5) mg/dL AST 744 H (12-35) U/L ALT 1190 H (4-50) U/L Alkaline Phosphatase 243 H (40-150) U/L C-Reactive Protein 1.3 H (0.5-1.0) mg/dL Total Protein 9.6 H (6.0-8.3) g/dL Albumin 5.3 H (3.3-5.0) g/dL Amylase 75 (18-89) U/L SARS-CoV-2 (PCR) Negative SARS-CoV-2 (Negative) 04/22/22 04/22/22 Range/Units 06:00 06:00 WBC 10.56 (4.50-11.00) K/uL RBC 4.85 (4.30-5.90) m/uL Hgb 13.8 (13.5-17.5) gm/dL Hct 41.8 (37.0-53.0) % MCV 86 (80-100) fL MCH 29 (26-34) pg MCHC 33 (32-36) gm/dL RDW Coeff of Pat 12.6 (11.5-15.5) % Plt Count 201 (140-440) K/uL Neut % (Auto) 81.5 H (42.0-72.0) % Lymph % (Auto) 11.9 L (20-44) % Davison % (Auto) 5.5 (0.0-11.0) % Eos % (Auto) 0.3 (0.0-7.0) % Baso % (Auto) 0.1 (0.0-3.0) % Neut # (Auto) 8.60 H (1.7-7.0) K/uL Lymph # (Auto) 1.30 (0.90-2.90) K/uL Davison # (Auto) 0.60 (0.00-0.90) K/UL Eos # (Auto) 0.03 (0.00-0.50) K/uL Baso # (Auto) 0.01 (0.00-0.30) K/uL Abs Immat Gran (auto) 0.07 (0.00-0.30) K/uL Sodium 138 (135-149) mmol/L Potassium 3.8 (3.6-5.1) mmol/L Chloride 102 (96-114) mmol/L Carbon Dioxide 25 (20-32) mmol/L BUN 13 (5-24) mg/dL Creatinine 0.9 (0.5-1.5) mg/dL Estimated Creat Clear 105.75 Estimated GFR 105 ml/min Glucose 156 H (60-115) mg/dL Calcium 9.1 (8.4-10.6) mg/dL Total Bilirubin 3.7 H (0.1-1.5) mg/dL Direct Bilirubin 1.6 H (0.0-0.5) mg/dL AST 415 H (12-35) U/L ALT 892 H (4-50) U/L Alkaline Phosphatase 162 H (40-150) U/L C-Reactive Protein (0.5-1.0) mg/dL Total Protein 7.0 (6.0-8.3) g/dL Albumin 4.2 (3.3-5.0) g/dL Amylase (18-89) U/L SARS-CoV-2 (PCR) (Negative) <Austin Baxter MD - Last Filed: 04/22/22 21:27> Lab Results 04/21/22 04/21/22 04/21/22 Range/Units 16:48 16:48 21:45 WBC 9.71 (4.50-11.00) K/uL RBC 5.87 (4.30-5.90) m/uL Hgb 16.8 (13.5-17.5) gm/dL Hct 50.2 (37.0-53.0) % MCV 86 (80-100) fL MCH 29 (26-34) pg MCHC 34 (32-36) gm/dL RDW Coeff of Pat 12.5 (11.5-15.5) % Plt Count 244 (140-440) K/uL Neut % (Auto) 85.4 H (42.0-72.0) % Lymph % (Auto) 9.1 L (20-44) % Davison % (Auto) 4.5 (0.0-11.0) % Eos % (Auto) 0.6 (0.0-7.0) % Baso % (Auto) 0.2 (0.0-3.0) % Neut # (Auto) 8.30 H (1.7-7.0) K/uL Lymph # (Auto) 0.90 (0.90-2.90) K/uL Davison # (Auto) 0.40 (0.00-0.90) K/UL Eos # (Auto) 0.06 (0.00-0.50) K/uL Baso # (Auto) 0.02 (0.00-0.30) K/uL Abs Immat Gran (auto) 0.02 (0.00-0.30) K/uL Sodium (135-149) mmol/L Potassium (3.6-5.1) mmol/L Chloride (96-114) mmol/L Carbon Dioxide (20-32) mmol/L BUN (5-24) mg/dL Creatinine (0.5-1.5) mg/dL Estimated Creat Clear Estimated GFR ml/min Glucose (60-115) mg/dL Calcium (8.4-10.6) mg/dL Total Bilirubin 6.1 H (0.1-1.5) mg/dL Direct Bilirubin 3.9 H (0.0-0.5) mg/dL AST 744 H (12-35) U/L ALT 1190 H (4-50) U/L Alkaline Phosphatase 243 H (40-150) U/L C-Reactive Protein 1.3 H (0.5-1.0) mg/dL Total Protein 9.6 H (6.0-8.3) g/dL Albumin 5.3 H (3.3-5.0) g/dL Amylase 75 (18-89) U/L SARS-CoV-2 (PCR) Negative SARS-CoV-2 (Negative) 04/22/22 04/22/22 Range/Units 06:00 06:00 WBC 10.56 (4.50-11.00) K/uL RBC 4.85 (4.30-5.90) m/uL Hgb 13.8 (13.5-17.5) gm/dL Hct 41.8 (37.0-53.0) % MCV 86 (80-100) fL MCH 29 (26-34) pg MCHC 33 (32-36) gm/dL RDW Coeff of Pat 12.6 (11.5-15.5) % Plt Count 201 (140-440) K/uL Neut % (Auto) 81.5 H (42.0-72.0) % Lymph % (Auto) 11.9 L (20-44) % Davison % (Auto) 5.5 (0.0-11.0) % Eos % (Auto) 0.3 (0.0-7.0) % Baso % (Auto) 0.1 (0.0-3.0) % Neut # (Auto) 8.60 H (1.7-7.0) K/uL Lymph # (Auto) 1.30 (0.90-2.90) K/uL Davison # (Auto) 0.60 (0.00-0.90) K/UL Eos # (Auto) 0.03 (0.00-0.50) K/uL Baso # (Auto) 0.01 (0.00-0.30) K/uL Abs Immat Gran (auto) 0.07 (0.00-0.30) K/uL Sodium 138 (135-149) mmol/L Potassium 3.8 (3.6-5.1) mmol/L Chloride 102 (96-114) mmol/L Carbon Dioxide 25 (20-32) mmol/L BUN 13 (5-24) mg/dL Creatinine 0.9 (0.5-1.5) mg/dL Estimated Creat Clear 105.75 Estimated GFR 105 ml/min Glucose 156 H (60-115) mg/dL Calcium 9.1 (8.4-10.6) mg/dL Total Bilirubin 3.7 H (0.1-1.5) mg/dL Direct Bilirubin 1.6 H (0.0-0.5) mg/dL AST 415 H (12-35) U/L ALT 892 H (4-50) U/L Alkaline Phosphatase 162 H (40-150) U/L C-Reactive Protein (0.5-1.0) mg/dL Total Protein 7.0 (6.0-8.3) g/dL Albumin 4.2 (3.3-5.0) g/dL Amylase (18-89) U/L SARS-CoV-2 (PCR) (Negative) <Tammy Auguste MD - Last Filed: 04/22/22 11:18> Discharge Plan Discharge Clinical Impression: Postoperative abdominal pain, Biliary calculi, common bile duct <Austin Baxter MD - Last Filed: 04/22/22 21:27> Condition: Stable <Austin Baxter MD - Last Filed: 04/22/22 21:27> Instructions: Biliary Colic (ED) <Austin Baxter MD - Last Filed: 04/22/22 21:27> Additional Instructions: Dr. Bryson from [facility] [place] [facility] should be having someone from his office contact you to get you set up for an endoscopic ultrasound, possible ERCP tomorrow. You should refrain from eating and drinking after midnight tonight unless you here otherwise from them. If you do have return of your abdominal pain, Dr. Bryson has recommended that you present to the [facility] ER. Recommend trying clear liquids, bland foods for today. <Austin Baxter MD - Last Filed: 04/22/22 21:27> Activity Level: Activity as Tolerated <Austin Baxter MD - Last Filed: 04/22/22 21:27> Activity as Tolerated <Tammy Auguste MD - Last Filed: 04/22/22 11:18> Prescriptions: No Action oxycodone 5 mg tablet 5 mg PO Q6H PRN (Reason: pain) Qty: 20 0RF senna 8.6 mg capsule 8.6 mg PO DAILY PRN (Reason: constipation) Qty: 90 0RF <Austin Baxter MD - Last Filed: 04/22/22 21:27> Follow Up/Referrals: Aris Reilly MD [Primary Care Provider] - <Austin Baxter MD - Last Filed: 04/22/22 21:27> Stand Alone Forms: My[employer] Info Instructions <Austin Baxter MD - Last Filed: 04/22/22 21:27>
[2022-04-21] MEDS: MORPHINE 4 MG/ML INJ IVP ×2 (16:55→19:07)
[2022-04-21] MEDS: 0.9 % SODIUM CHLORIDE 1000 ml 1,000 ML 6000 ML IV (16:55)
[2022-04-21 17:11] LABS: Basophils Absolute Auto 0.02 K/uL (0.00-0.30); Basophils Percent Auto 0.2 % (0.0-3.0); Eosinophils Absolute Auto 0.06 K/uL (0.00-0.50); Eosinophils Percent Auto 0.6 % (0.0-7.0); Hematocrit 50.2 % (37.0-53.0); Hemoglobin* 16.8 gm/dL (13.5-17.5); Immature Granulocytes Abs Auto 0.02 K/uL (0.00-0.30); Lymphocytes Percent Auto 9.1 % (20-44); Mean Corpuscular HGB Conc 34 gm/dL (32-36); Mean Corpuscular Hemoglobin 29 pg (26-34); Mean Corpuscular Volume 86 fL (80-100); Monocytes Percent Auto 4.5 % (0.0-11.0); Neutrophils Percent Auto 85.4 % (42.0-72.0); Platelet Count* 244 K/uL (140-440); RDW Coefficient of Variation % 12.5 % (11.5-15.5); Red Blood Count 5.87 m/uL (4.30-5.90); White Blood Count* 9.71 K/uL (4.50-11.00)
[2022-04-21 17:19] LABS: Slide Review Reflex No
[2022-04-21 17:29] LABS: Albumin* 5.3 g/dL (3.3-5.0)
[2022-04-21 17:32] LABS: Amylase* 75 U/L (18-89); Total Protein* 9.6 g/dL (6.0-8.3)
[2022-04-21 17:33] LABS: Alkaline Phosphatase* 243 U/L (40-150); Bilirubin Direct* 3.9 mg/dL (0.0-0.5); Bilirubin Total* 6.1 mg/dL (0.1-1.5)
[2022-04-21 17:35] LABS: C Reactive Protein* 1.3 mg/dL (0.5-1.0)
[2022-04-21 17:39] LABS: Aspartate Amino Transferase* 744 U/L (12-35)
[2022-04-21 19:51] LABS: Alanine Aminotransferase* 1190 U/L (4-50)
[2022-04-21] MEDS: PIPERACILLIN/TAZOBACTAM 4.5 GM in 0.9 % SODIUM CHLORIDE Mini-bag 100 ML IVPB (19:53)
--- NOTE | 2022-04-21 20:39 | ED.NURSE ---
pt with zosyn almost complete, reports hot flash and generalized itching. Zosyn stopped, Dr. Romero notified and to room
[2022-04-21] MEDS: diphenhydrAMINE 50 MG/ML inj 25 MG IVP (20:53)
--- NOTE | 2022-04-21 20:53 | ED.NURSE ---
[employer] found Pt standing at end of bed, confused. Pt did report having been on floor at end of bed and jammed L hand middle finger.
[2022-04-21] MEDS: 5 % DEXTROSE/0.9% SOD CHLORIDE 1,000 ML 75 ML IV (21:09)
[2022-04-21 22:38] LABS: SARS PCR* Negative SARS-CoV-2 (Negative)
[2022-04-22] VITALS (8 sets, daily range): BP systolic 117–146; BP diastolic 73–100; PULSE 62–73; RESP 16; O2SAT 94–96
--- NOTE | 2022-04-22 01:29 | ED.NURSE ---
Pt alert and oriented, thankful for cares, has had ice pack on finger. Pt denied needing finger xr to dr gupta earlier and denies an xr now too.
[2022-04-22 06:17] LABS: Basophils Absolute Auto 0.01 K/uL (0.00-0.30); Basophils Percent Auto 0.1 % (0.0-3.0); Eosinophils Absolute Auto 0.03 K/uL (0.00-0.50); Eosinophils Percent Auto 0.3 % (0.0-7.0); Hematocrit 41.8 % (37.0-53.0); Hemoglobin* 13.8 gm/dL (13.5-17.5); Immature Granulocytes Abs Auto 0.07 K/uL (0.00-0.30); Lymphocytes Percent Auto 11.9 % (20-44); Mean Corpuscular HGB Conc 33 gm/dL (32-36); Mean Corpuscular Hemoglobin 29 pg (26-34); Mean Corpuscular Volume 86 fL (80-100); Monocytes Percent Auto 5.5 % (0.0-11.0); Neutrophils Percent Auto 81.5 % (42.0-72.0); Platelet Count* 201 K/uL (140-440); RDW Coefficient of Variation % 12.6 % (11.5-15.5); Red Blood Count 4.85 m/uL (4.30-5.90); White Blood Count* 10.56 K/uL (4.50-11.00)
[2022-04-22 06:19] LABS: Slide Review Reflex No
[2022-04-22 06:30] LABS: Albumin* 4.2 g/dL (3.3-5.0); Chloride* 102 mmol/L (96-114)
[2022-04-22 06:31] LABS: Potassium* 3.8 mmol/L (3.6-5.1); Sodium* 138 mmol/L (135-149)
[2022-04-22 06:33] LABS: Alkaline Phosphatase* 162 U/L (40-150); Aspartate Amino Transferase* 415 U/L (12-35); Bilirubin Direct* 1.6 mg/dL (0.0-0.5); Bilirubin Total* 3.7 mg/dL (0.1-1.5); Blood Urea Nitrogen* 13 mg/dL (5-24); Carbon Dioxide* 25 mmol/L (20-32); Creatinine* 0.9 mg/dL (0.5-1.5); Est. Creatinine Clearance* 105.75; Estimated Glomerular Filt Rate 105 ml/min; Glucose* 156 mg/dL (60-115)
[2022-04-22 06:34] LABS: Calcium* 9.1 mg/dL (8.4-10.6)
[2022-04-22 07:08] LABS: Alanine Aminotransferase* 892 U/L (4-50)
[2022-04-22] MEDS: 5 % DEXTROSE/0.9% SOD CHLORIDE 1,000 ML 75 ML IV (07:30)
== END 2022-04-22 12:05 | disposition home or self-care (01) ==
PROVIDERS: Family Medicine; Emergency Provider Family Medicine; PCP Family Medicine
DX: K80.51 Calculus of bile duct without cholangitis or cholecystitis with obstruction (principal)
CPT/HCPCS: 36415; 74177; 80048; 80076; 82150; 85025; 86140; 87040; 87635; 94761; 96365; 96375; 96376; 99284; 99285; J1200; J2270; J2543; J7030; J7042; Q9967

== ENCOUNTER 2024-11-13 10:43 | Outpatient (CLI) | payer BC, SELFPAY | END 2024-11-13 10:44 | disposition home or self-care (01) | PROVIDERS: PCP Internal Medicine; Visit Provider Internal Medicine | DX: E66.9 Obesity, unspecified (principal); Z12.5 Encounter for screening for malignant neoplasm of prostate; Z13.6 Encounter for screening for cardiovascular disorders | CPT/HCPCS: 80053; 80061; G0103 ==